=== PATIENT | male | born 1980 | race Hispanic/Latino ===

== ENCOUNTER 2020-10-05 16:59 | Emergency (ER) | payer SELFPAY ==
--- NOTE | 2020-10-05 18:47 | RAD REPORT ---
EXAM DESCRIPTION: RAD - Knee Right 3 View - 10/05/2020 6:14 pm CLINICAL HISTORY: Right knee pain FINDINGS: No fracture or dislocation is seen. Mild medial joint space narrowing. Spur extends off of superior aspect of the patella
--- NOTE | 2020-10-05 21:02 | ER ---
Nurse's Notes [facility] Name: Jesus Jeffries Age: 40 yrs Sex: Male : 1980 Arrival Date: 10/05/2020 Time: 17:03 Bed Waiting Private MD: Diagnosis: Sprain of anterior cruciate ligament of right knee Presentation: 10/05 17:30 Chief complaint: Patient states: R knee pain since last week. I did not fall ca1 but I was at work when it started hurting. I don't know if I twisted wrong or something. Hurts to bend my R knee, tender R in the middle and a little swollen. Coronavirus screen: Client denies travel out of the [place] in the last 14 days. At this time, the client does not indicate any symptoms associated with coronavirus-19. Ebola Screen: Patient negative for fever greater than or equal to 101.5 degrees Fahrenheit, and additional compatible Ebola Virus Disease symptoms Patient denies exposure to infectious person. Patient denies travel to an Ebola-affected area in the 21 days before illness onset. No symptoms or risks identified at this time. Initial Sepsis Screen: Does the patient meet any 2 criteria? No. Patient's initial sepsis screen is negative. Does the patient have a suspected source of infection? No. Patient's initial sepsis screen is negative. Risk Assessment: Do you want to hurt yourself or someone else? Patient reports no desire to harm self or others. Onset of symptoms was October 05, 2020. 17:30 Method Of Arrival: Ambulatory ca1 17:30 Acuity: PAVEL 4 ca1 Historical: - Allergies: 17:33 No Known Allergies; ca1 - Home Meds: 17:33 None [Active]; ca1 - PMHx: 17:33 None; ca1 - PSHx: 17:33 None; ca1 - Immunization history:: Adult Immunizations up to date. - Social history:: Smoking status: Patient denies any tobacco usage or history of. Screenin:13 Abuse screen: Denies threats or abuse. Denies injuries from another. Nutritional ca1 screening: No deficits noted. Tuberculosis screening: No symptoms or risk factors identified. Fall Risk None identified. Assessment: 21:13 General: Appears in no apparent distress. comfortable, Behavior is calm, cooperative, ca1 appropriate for age. Pain: Complains of pain in right knee Pain currently is 6 out of 10 on a pain scale. 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 Pain: Aggravated by weight bearing. Derm: Skin is intact, is healthy with good turgor, Skin is pink, warm \T\ dry. Musculoskeletal: Circulation, motion, and sensation intact. Capillary refill < 3 seconds. Vital Signs: 17:30 BP 135 / 85; Pulse 79; Resp 16 S; Temp 98.3(TE); Pulse Ox 99% on R/A; Weight 93.44 kg ca1 (R); Height 5 ft. 5 in. (165.10 cm) (R); Pain 6/10; 21:13 BP 140 / 80; Pulse 89; Resp 16 S; Pulse Ox 100% on R/A; ca1 17:30 Body Mass Index 34.28 (93.44 kg, 165.10 cm) ca1 ED Course: 17:03 Patient arrived in ED. mr 17:33 Triage completed. ca1 17:33 Arm band placed on right wrist. ca1 18:13 Knee Right 3 View XRAY In Process Unspecified. EDMS 20:52 Migue Rowland MD is Attending Physician. tw4 21:02 Clarence Gordillo MD is Referral Physician. tw4 21:02 Escobar Landrum MD is Referral Physician. tw4 21:09 Ebonie Hawk RN is Primary Nurse. ca1 21:13 Patient has correct armband on for positive identification. ca1 21:14 No provider procedures requiring assistance completed. Patient did not have IV access ca1 during this emergency room visit. Romeo wrap to right knee. Administered Medications: 21:12 Drug: [place] 5 mg-325 mg 1 tabs {Note: rass 0.} Route: PO; ca1 21:15 Follow up: Response: Medication administered at discharge. ca1 Outcome: 21:02 Discharge ordered by . tw4 21:15 Discharged to home ambulatory, with significant other. ca1 21:15 Condition: stable 21:15 Discharge instructions given to patient, Instructed on discharge instructions, follow up and referral plans. medication usage, Demonstrated understanding of instructions, follow-up care, medications, Prescriptions given X 1. 21:15 Patient left the ED. ca1 Signatures: Dispatcher [employer] EDNH Valeria Dunn mr Migue Rowland MD MD tw4 Acob, Ebonie, RN RN ca1
--- NOTE | 2020-10-05 21:02 | EDPHYS ---
Physician Documentation [facility] Name: Jesus Jeffries Age: 40 yrs Sex: Male : 1980 Arrival Date: 10/05/2020 Time: 17:03 Bed Waiting Private MD: ED Physician Migue Rowland HPI: 10/05 20:59 This 40 yrs old Male presents to ER via Ambulatory with complaints of Knee tw4 swelling. 20:59 The patient presents with decreased range of motion, an injury. The complaints affect tw4 the right knee. Context: The problem was sustained at home, resulted from twisting of the extremity, the patient can partially bear weight, the patient is able to ambulate. Onset: The symptoms/episode began/occurred today. 20:59 Modifying factors: The symptoms are alleviated by nothing. the symptoms are aggravated tw4 by nothing. Severity of symptoms: At their worst the symptoms were moderate, in the emergency department the symptoms are unchanged. The patient has not experienced similar symptoms in the past. Historical: - Allergies: 17:33 No Known Allergies; ca1 - Home Meds: 17:33 None [Active]; ca1 - PMHx: 17:33 None; ca1 - PSHx: 17:33 None; ca1 - Immunization history:: Adult Immunizations up to date. - Social history:: Smoking status: Patient denies any tobacco usage or history of. ROS: 20:59 Constitutional: Negative for fever, chills, and weight loss, Eyes: Negative for injury, tw4 pain, redness, and discharge, Cardiovascular: Negative for chest pain, palpitations, and edema, Respiratory: Negative for shortness of breath, cough, wheezing, and pleuritic chest pain, Abdomen/GI: Negative for abdominal pain, nausea, vomiting, diarrhea, and constipation, Skin: Negative for injury, rash, and discoloration, Neuro: Negative for headache, weakness, numbness, tingling, and seizure. 20:59 MS/extremity: Positive for injury or acute deformity, decreased range of motion, pain, Negative for deformity, ecchymosis, erythema, laceration. Exam: 20:59 Constitutional: This is a well developed, well nourished patient who is awake, alert, tw4 and in no acute distress. Head/Face: Normocephalic, atraumatic. Chest/axilla: Normal chest wall appearance and motion. Nontender with no deformity. No lesions are appreciated. Cardiovascular: Regular rate and rhythm with a normal S1 and S2. No gallops, murmurs, or rubs. Normal PMI, no JVD. No pulse deficits. Respiratory: Lungs have equal breath sounds bilaterally, clear to auscultation and percussion. No rales, rhonchi or wheezes noted. No increased work of breathing, no retractions or nasal flaring. Abdomen/GI: Soft, non-tender, with normal bowel sounds. No distension or tympany. No guarding or rebound. No evidence of tenderness throughout. Neuro: Awake and alert, GCS 15, oriented to person, place, time, and situation. Cranial nerves II-XII grossly intact. Motor strength 5/5 in all extremities. Sensory grossly intact. Cerebellar exam normal. Normal gait. 20:59 Skin: Warm, dry with normal turgor. Normal color with no rashes, no lesions, and no evidence of cellulitis. 20:59 Musculoskeletal/extremity: Extremities: noted in the right knee: decreased ROM, pain, ROM: Vital Signs: 17:30 BP 135 / 85; Pulse 79; Resp 16 S; Temp 98.3(TE); Pulse Ox 99% on R/A; Weight 93.44 kg ca1 (R); Height 5 ft. 5 in. (165.10 cm) (R); Pain 6/10; 21:13 BP 140 / 80; Pulse 89; Resp 16 S; Pulse Ox 100% on R/A; ca1 17:30 Body Mass Index 34.28 (93.44 kg, 165.10 cm) ca1 MDM: 21:02 Patient medically screened. tw4 10/06 01:05 Differential diagnosis: dislocation, closed fracture, contusion. Data reviewed: vital tw4 signs, nurses notes, radiologic studies, plain films. Data interpreted: Pulse oximetry: Interpretation: normal. Counseling: I had a detailed discussion with the patient and/or guardian regarding: the historical points, exam findings, and any diagnostic results supporting the discharge/admit diagnosis, radiology results. Special discussion: I discussed with the patient/guardian in detail that at this point there is no indication for admission to the hospital. It is understood, however, that if the symptoms persist or worsen the patient needs to return immediately for re-evaluation. 10/05 17:34 Order name: Knee Right 3 View XRAY; Complete Time: 20:52 ca1 10/05 20:58 Order name: Romeo Wrap; Complete Time: 21:09 tw4 Administered Medications: 10/05 21:12 Drug: [place] 5 mg-325 mg 1 tabs {Note: rass 0.} Route: PO; ca1 21:15 Follow up: Response: Medication administered at discharge. ca1 Disposition: 10/05/20 21:02 Discharged to Home. Impression: Sprain of anterior cruciate ligament of right knee. - Condition is Stable. - Discharge Instructions: Knee Sprain. - Prescriptions for Ibuprofen 800 mg Oral Tablet - take 1 tablet by ORAL route every 8 hours As needed take with food; 30 tablet. - Medication Reconciliation Form, Thank You Letter, Antibiotic Education, Prescription Opioid Use form. - Follow up: Private Physician; When: Upon discharge from the Emergency Department; Reason: Recheck today's complaints, Continuance of care, Re-evaluation by your physician. Follow up: Clarence Gordillo MD; When: Upon discharge from the Emergency Department; Reason: Recheck today's complaints, Continuance of care, Re-evaluation by your physician. Follow up: Escobar Landrum MD; When: Upon discharge from the Emergency Department; Reason: Recheck today's complaints, Continuance of care, Re-evaluation by your physician. - Problem is new. - Symptoms have improved. Signatures: Dispatcher [employer] EDMS Migue Rowland MD MD tw4 Ebonie Hawk RN RN ca1 Corrections: (The following items were deleted from the chart) 21:03 21:02 10/05/2020 21:02 Discharged to Home. Impression: Sprain of anterior cruciate tw4 ligament of right knee. Condition is Stable. Forms are Medication Reconciliation Form, Thank You Letter, Antibiotic Education, Prescription Opioid Use. Follow up: Private Physician; When: Upon discharge from the Emergency Department; Reason: Recheck today's complaints, Continuance of care, Re-evaluation by your physician. Problem is new. Symptoms have improved. tw4 21:15 21:03 10/05/2020 21:02 Discharged to Home. Impression: Sprain of anterior cruciate ca1 ligament of right knee. Condition is Stable. Discharge Instructions: Knee Sprain. Prescriptions for Ibuprofen 800 mg Oral Tablet - take 1 tablet by ORAL route every 8 hours As needed take with food; 30 tablet. and Forms are Medication Reconciliation Form, Thank You Letter, Antibiotic Education, Prescription Opioid Use. Follow up: Private Physician; When: Upon discharge from the Emergency Department; Reason: Recheck today's complaints, Continuance of care, Re-evaluation by your physician. Follow up: Clarence Gordillo; When: Upon discharge from the Emergency Department; Reason: Recheck today's complaints, Continuance of care, Re-evaluation by your physician. Follow up: Escobar Landrum; When: Upon discharge from the Emergency Department; Reason: Recheck today's complaints, Continuance of care, Re-evaluation by your physician. Problem is new. Symptoms have improved. tw4
[2020-10-05] MEDS ORDERED: HYDROCODONE/APAP 5/325 MG TAB ONE (21:29)
[2020-10-06 01:54] VITALS: TEMP 98.3
[2020-10-06 01:55] VITALS: BP 140/80; O2SAT 100
== END 2020-10-05 21:15 | disposition home or self-care (01) ==
LOC: ER 16:59
DX: S83.511A Sprain of anterior cruciate ligament of right knee, initial encounter (principal); X50.0XXA Overexertion from strenuous movement or load, initial encounter; Y92.009 Unspecified place in unspecified non-institutional (private) residence as the place of occurrence of the external cause
CPT/HCPCS: 99284